=== PATIENT | male | born 1975 | race Caucasian/White ===

== ENCOUNTER 2020-06-05 13:51 | Emergency (ER) | payer OTHER ==
[2020-06-05] MEDS ORDERED: diphenhydrAMINE 50 MG/ML VIAL ONE (14:51)
[2020-06-05] MEDS ORDERED: SODIUM CHLORIDE 0.9% 1000 ML 1,000 ML ONE (14:51)
[2020-06-05] MEDS ORDERED: METOCLOPRAMIDE 10 MG/2 ML INJ ONE (14:51)
[2020-06-05] MEDS ORDERED: MORPHINE 4 MG/1 ML INJ ONE ×2 (15:51→19:38)
[2020-06-05] MEDS ORDERED: levETIRAcetam 1000 MG/NS 0.75% 1,000 MG/100 ML BAG IV ONE (17:08)
[2020-06-06 05:55] VITALS: BP 138/97
--- NOTE | 2020-06-06 15:08 | Cat Scan Report ---
CT BRAIN: 06/05/2020 INDICATION / CLINICAL INFORMATION: headache . COMPARISON: None available. FINDINGS: BRAIN/INTRACRANIAL STRUCTURES: Unenhanced CT images of the brain were obtained. There is a prominent extra-axial fluid collection located in the right frontoparietal region. This is a partially loculated collection, with a maximum thickness of approximately 1.8 cm, as measured in t he coronal plane. It is predominantly slightly hypodense compared to brain parenchyma, although there are some areas of iso and slight hyperdensity. The appearance is consistent with a subdural hematoma , possibly subacute. There is significant mass effect, with right to left midline shift measured at 1.3 cm at the level of the septum pellucidum. The underlying brain parenchyma demonstrates no evidence of acute or significant abnormality. There i s no evidence of hemorrhage or mass. EXTRACRANIAL STRUCTURES: Unremarkable. IMPRESSION: Prominent right frontoparietal partially loculated subdural collection as described above, with a ma ximum thickness of approximately 1.8 cm, and resulting in mass effect with 1.3 cm midline shift from right to left. All CT scans at this location are performed using dose reduction to ALARA by means of automated expos ure control. Signer Name: Brayden Lechuga MD Signed: 06/05/2020 4:32 PM Workstation Name: [id number]
== END 2020-06-05 19:50 | disposition other institution (70) ==
LOC: ED 17:30
DX: R51.9 Headache, unspecified (principal); Z53.21 Procedure and treatment not carried out due to patient leaving prior to being seen by health care provider
CPT/HCPCS: 70450; J1200; J1953; J2270; J2765; J7030

== ENCOUNTER 2021-10-29 13:41 | Emergency (ER) | payer SELFPAY ==
[2021-10-29 13:57] VITALS: BP 146/95
[2021-10-29] MEDS ORDERED: HYDROcodone/ACETAMINOPHEN 5-325 MG TAB PO ONE (17:38)
--- NOTE | 2021-10-29 19:02 | Cat Scan Report ---
CT HEAD WITHOUT CONTRAST INDICATION / CLINICAL INFORMATION: headache. TECHNIQUE: All CT scans at this location are performed using CT dose reduction for ALARA by means of automated e xposure control. COMPARISON: Head CT 8 06/05/2020 FINDINGS: Surgical changes: Since prior study patient has undergone large right parietal craniotomy for evacuat ion of previously demonstrated subdural hematoma. HEMORRHAGE: No evidence of intracranial hemorrhage or significant extra-axial fluid collection. A sma ll subdural hygroma is seen along the lateral convexity of the right frontal lobe. There is no signif icant mass effect. EXTRA-AXIAL SPACES: Cortical sulci, sylvian fissures and basilar cisterns have an unremarkable appear ance. VENTRICULAR SYSTEM: The third and lateral ventricles are of normal size and configuration. CEREBRAL PARENCHYMA: No areas of abnormal brain parenchymal attenuation are identified. There is no i ndication of recent infarction. MIDLINE SHIFT OR HERNIATION: There is no mass effect. CEREBELLUM / BRAINSTEM: Brainstem and cerebellum have an unremarkable appearance. Incidental note is made of a negative cisterna magna. MIDLINE STRUCTURES:No abnormalities of the pituitary gland or pineal region are identified. INTRACRANIAL VESSELS:No abnormalities are identified on this noncontrast head CT. ORBITS: visualized portions of the orbits have an unremarkable appearance. SOFT TISSUES of HEAD: No significant abnormality. CALVARIUM: Status post large right parietal craniotomy. PARANASAL SINUSES / MASTOID AIR CELLS: Retention cyst or polyp at the base of the right maxillary sin us. Paranasal sinuses otherwise appear to be free from inflammatory mucosal disease. ADDITIONAL FINDINGS: None. IMPRESSION: 1. No acute intracranial abnormality. 2. Status post right parietal craniotomy for evacuation of previously demonstrated subdural hematoma. 3. Small (5 mm thick) subdural hygroma on the right without associated mass effect. Signer Name: Dwaine Gonzales MD Signed: 10/29/2021 6:58 PM Workstation Name: [id number]
--- NOTE | 2021-10-29 19:21 | Emergency Department Report ---
ED Headache HPI - General Chief Complaint: Headache Stated Complaint: MIGRAINE Time Seen by Provider: 10/29/21 17:37 Source: patient - History of Present Illness Initial Comments: PT PRESENTS TO ED WITH HEADACHE Timing/Duration: waxing and waning Quality: moderate Head Injury Location: frontal Recent Head Trauma: head trauma > 24 hrs ago Modifying Factors: worse with: cold therapy, exposure to light Associated Symptoms: denies: denies symptoms, confusion, fatigue Allergies/Adverse Reactions: Allergies No Known Allergies Allergy (Unverified 06/06/15 17:59) Home Medications: Ambulatory Orders Acetaminophen/Codeine [Tylenol #3] 1 tab PO Q6H PRN #16 tab 06/07/15 Cyclobenzaprine [Flexeril 10 MG TAB] 10 mg PO TID PRN #12 tablet 06/07/15 Ibuprofen [Motrin 800 MG tab] 800 mg PO Q8HR PRN #21 tablet 06/07/15 ED Review of Systems ROS: Stated complaint: MIGRAINE Other details as noted in HPI Constitutional: denies: chills, fever Eyes: denies: eye pain, eye discharge, vision change ENT: denies: ear pain, throat pain Respiratory: denies: cough, shortness of breath, wheezing Cardiovascular: denies: chest pain, palpitations Endocrine: no symptoms reported Gastrointestinal: denies: abdominal pain, nausea, diarrhea Genitourinary: denies: urgency, dysuria Musculoskeletal: denies: back pain, joint swelling, arthralgia Skin: denies: rash, lesions Neurological: denies: headache, weakness, paresthesias Psychiatric: denies: anxiety, depression Hematological/Lymphatic: denies: easy bleeding, easy bruising ED Past Medical Hx - Past Medical History Previous Medical History?: No Hx Hypertension: No Hx CVA: No - Social History Smoking Status: Never Smoker Substance Use Type: None - Medications Home Medications: Home Medications Medication Instructions Recorded Confirmed Last Taken Type Acetaminophen/Codeine [Tylenol #3] 1 tab PO Q6H PRN #16 tab 06/07/15 Unknown Rx Cyclobenzaprine [Flexeril 10 MG 10 mg PO TID PRN #12 tablet 06/07/15 Unknown Rx TAB] Ibuprofen [Motrin 800 MG tab] 800 mg PO Q8HR PRN #21 tablet 06/07/15 Unknown Rx ED Physical Exam - General Limitations: No Limitations General appearance: alert, in no apparent distress - Head Head exam: Present: atraumatic, normocephalic - Eye Eye exam: Present: normal appearance - ENT ENT exam: Present: mucous membranes moist - Neck Neck exam: Present: normal inspection - Respiratory Respiratory exam: Present: normal lung sounds bilaterally. Absent: respiratory distress - Cardiovascular Cardiovascular Exam: Present: regular rate, normal rhythm. Absent: systolic murmur, diastolic murmur, rubs, gallop - GI/Abdominal GI/Abdominal exam: Present: soft, normal bowel sounds - Rectal Rectal exam: Present: deferred - Extremities Exam Extremities exam: Present: normal inspection - Back Exam Back exam: Present: normal inspection - Neurological Exam Neurological exam: Present: alert, oriented X3 - Psychiatric Psychiatric exam: Present: normal affect, normal mood - Skin Skin exam: Present: warm, dry, intact, normal color. Absent: rash ED Course Vital Signs 10/29/21 13:55 Temperature 98.5 F Pulse Rate 92 H Respiratory 16 Rate Blood Pressure 146/95 [Left] O2 Sat by Pulse 94 Oximetry Critical care attestation.: If time is entered above; I have spent that time in minutes in the direct care of this critically ill patient, excluding procedure time. ED Disposition Clinical Impression: Headache Disposition: 01 HOME / SELF CARE / HOMELESS Is pt being admited?: No Does the pt Need Aspirin: No Condition: Stable Referrals: PRIMARY CARE, [Primary Care Provider] - 3-5 Days
== END 2021-10-30 07:00 | disposition home or self-care (01) ==
LOC: ED 13:41
DX: R51.9 Headache, unspecified (principal)
CPT/HCPCS: 70450; 99283